=== PATIENT | female | born 1955 | race Caucasian/White ===

== ENCOUNTER → 2023-07-23 | Outpatient (CLI) | payer MEDICARE, OTHER | LOC: ORTHO 09:21 | PROVIDERS: ATTEND Orthopaedic Surgery | DX: S52.532A Colles' fracture of left radius, initial encounter for closed fracture (principal); X58.XXXA Exposure to other specified factors, initial encounter | CPT/HCPCS: 29075; G0463 ==

== ENCOUNTER → 2023-07-31 | Outpatient (CLI) | payer MEDICARE ==
--- NOTE | 2023-07-31 09:15 | Diagnostic Imaging Report ---
INDICATION: Closed fracture status post reduction. EXAMINATION: Left wrist 07/31/2023 FINDINGS: There is a cast overlying the wrist obscuring fine bony detail. Dorsally angulated distal radius fracture noted. IMPRESSION: 1. Angulated distal radius fracture. Dictated by: Dictated on workstation # [id number]
== END ==
LOC: ORTHO 08:11
PROVIDERS: ATTEND Orthopaedic Surgery
DX: S52.532D Colles' fracture of left radius, subsequent encounter for closed fracture with routine healing (principal); Z98.890 Other specified postprocedural states; X58.XXXD Exposure to other specified factors, subsequent encounter
CPT/HCPCS: 73110; G0463; 99213

== ENCOUNTER → 2023-09-19 | Outpatient (CLI) | payer MEDICARE ==
--- NOTE | 2023-09-19 14:57 | Diagnostic Imaging Report ---
INDICATION: Follow-up fracture. COMPARISON: 08/21/2023 FINDINGS: Frontal and lateral radiographic views of the left wrist were obtained. Again identified is nonacute moderately angled fracture of the distal left radius. There is an increased sclerosis across the fracture lines. Fracture lines are now slightly less conspicuous. Radiocarpal joint space is preserved. No unexpected radiopaque foreign bodies are seen. IMPRESSION: 1. Partial interval healing in regards to previously described distal left radius fracture. Dictated by: Dictated on workstation # [id number]
== END ==
LOC: ORTHO 09:45
PROVIDERS: ATTEND Orthopaedic Surgery
DX: S52.532D Colles' fracture of left radius, subsequent encounter for closed fracture with routine healing (principal); X58.XXXD Exposure to other specified factors, subsequent encounter
CPT/HCPCS: 73100; G0463; 99213

== ENCOUNTER → 2023-10-22 | Outpatient (CLI) | payer MEDICARE | LOC: ORTHO 08:32 | PROVIDERS: ATTEND Orthopaedic Surgery | DX: S52.532D Colles' fracture of left radius, subsequent encounter for closed fracture with routine healing (principal); X58.XXXD Exposure to other specified factors, subsequent encounter | CPT/HCPCS: 99213 ==

== ENCOUNTER → 2023-10-24 | Outpatient (RCR) | payer MEDICARE | END | disposition home or self-care (01) | PROVIDERS: ATTEND Orthopaedic Surgery | DX: S52.532D Colles' fracture of left radius, subsequent encounter for closed fracture with routine healing (principal); X58.XXXD Exposure to other specified factors, subsequent encounter ==